=== PATIENT | female | born 1980 | race Caucasian/White ===

== ENCOUNTER 2023-04-22 20:24 | Emergency (ER) | payer SELFPAY | END 2023-04-22 21:12 | disposition left against medical advice (07) | LOC: ER 20:27 | DX: K04.7 Periapical abscess without sinus (principal); Z53.21 Procedure and treatment not carried out due to patient leaving prior to being seen by health care provider ==

== ENCOUNTER 2024-12-10 14:02 | Emergency (ER) | payer SELFPAY ==
[~2024-12-10] VITALS: Ht 152.4 cm; Wt 60.0 kg
--- NOTE | 2024-12-10 14:18 | Physician Documentation ---
History of Present Illness ~ Chief Complaint: Bite-insect Stated Complaint: ALLERGIC REACTION, BEE STING Time Seen by MD: 14:16 HPI MSE: 44-year-old female that presents to the emergency department after being stung by a bee approximately 20-25 minutes ago. Patient reports that she is having chest pain swelling and a rash. Airway is intact no complications with the airway at this time patient reports that she does not have difficulty breathing. Patient reports he has a history of Wfkaa-[id number]-[id number] without any significant complications. 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 Patient denies any other significant past medical history or any other symptoms at this time. Medication Reconciliation Allergies: Coded Allergies: bee venom protein (honey bee) (Verified Allergy, Unknown, 12/10/24) iodine (Verified Allergy, Unknown, SWELLING, 12/10/24) Review of Systems ROS As stated above in the HPI, otherwise all systems are reviewed and negative. Physical Exam Physical Exam VITALS: Reviewed and as above. GENERAL: Alert, no apparent distress. HEENT: Normocephalic, atraumatic, PERRL, EOMI, dry mucosa, mild edema and erythema noted around eyes bilaterally. RESPIRATORY: Lungs clear, normal breath sounds, no respiratory distress. CHEST: No accessory muscle use, no retractions CV: Regular rate, rhythm, no edema, no murmur, No: JVD GI: Soft, non-tender, bowels sounds present, no rebound, guarding, or rigidity BACK: No CVA tenderness, or swelling MUSCULOSKELETAL No deformities, no edema SKIN: Warm and dry, edema and rash noted to area underneath breasts bilaterally splotchy areas to the face and around the eyes bilaterally arms bilaterally and area of edema and obvious source of bee or wasp sting to the left index finger. NEURO: Oriented x4, No motor or sensory deficit PSYCH: Normal mood and affect, no agitation Progress Results/Orders Results/Orders Completed Orders - GEMMA CASSIDY Methylprednisolone Sod Succ (Solumedrol (12/10/24 14:25) Famotidine Tablet (Pepcid Tablet) (12/10/24 14:25) Electrocardiogram (12/10/24 ) Medications Received in ER Medications (Trade) Dose Ordered Sig/Presley Route PRN Reason Start Time Stop Time Status Last Admin Dose Admin (SoluMEDROL 125mg inj) 125 mg ONCE ONCE IM 12/10/24 14:25 12/10/24 14:26 DC 12/10/24 14:40 125 MG (Pepcid tablet) 20 mg ONCE ONCE PO 12/10/24 14:25 12/10/24 14:26 DC 12/10/24 14:31 20 MG Vital Signs 12/10/24 14:14 Temp 99.6 Pulse 50 Resp 16 B/P (MAP) 122/68 Pulse Ox 98 O2 Flow Rate 0 Medical Decision Making Findings This patient presents with symptoms consistent with acute hypersensitivity reaction, likely acute allergic reaction. Presentation not consistent with acute anaphylaxis (lack of pulmonary, dermatologic, cardiovascular or GI symptoms, lack of hypotension or exposure to known allergen), angioedema, serum sickness (no recent drug exposure, lacks fevers, arthralgias). No evidence of airway compromise or shock at this time. Patient improved with H1/H2 blockers, steroids. No need for epinephrine. Prescribed patient EpiPen. Patient will follow up with her primary care provider. Patient will return to the emergency department with any worsening or recurrent symptoms or any additional concerning symptoms that we discussed here today i.e. shortness of breath chest tightness throat tightness lightheadedness dizziness increased rash increased swelling or any other concerning symptoms. Differential Dx:Considerations: Include: Abrasion, Allergic reaction, Anaphylaxis, Cellulitis, Contusion, Fracture, Hematoma, Insect envenomation, Laceration, Neurovascular injury, Punture wound, Retained foreign body, Urticaria, Other Departure Impression: Primary Impression: Insect bites Additional Impressions: Bee sting Allergic response Rash Discharge Instructions: Insect Bite, Adult, [id number] Referrals: NO PRIMARY CARE PROVIDER (PCP) Prescriptions Epinephrine (Epipen 2-Markos) 0.3 Mg/0.3 Ml Auto.injct 1 SYR IM ONCE for 1 Day, #1 PKT 0 Refills Prov: GEMMA CASSIDY 12/10/24 Education Educated: Patient Educated regarding: diagnosis, treatment, need for follow up Signature Scribe Signature: A Attestation: Scribed for Gemma Cassidy by PREMA Thompson . 12/10/24 15:36 GEMMA CASSIDY Dec 10, 2024 14:18
--- NOTE | 2024-12-10 14:26 | ELECTROCARDIOGRAPH REPORT ---
[facility] Test Date: 2024-12-10 Test Time: 14:19:56 Pat Name: BRAULIO AVINA Department: EMERGENCY ROOM Room: Gender: F [employer] Hand: [place] : 1980 Requested By: GEMMA CASSIDY Order Number: [id number] Reading MD: Measurements Intervals [place] Rate: 98 P: 54 MI: 53 QRS: -17 QRSD: 95 T: -26 QT: 372 QTc: 476 Interpretive Statements Sinus rhythm Ventricular bigeminy Short MI interval Borderline left axis deviation Abnormal T, consider ischemia, anterior leads Please click the below link to view image of tracing.
[2024-12-10] MEDS ORDERED: EPIN0.3P3 IM (15:35)
[2024-12-10 15:36] VITALS: BP 103/77; PULSE 95; RESP 16; TEMP 99; O2SAT 99
== END 2024-12-10 15:41 | disposition home or self-care (01) ==
LOC: ER 14:03
DX: T63.441A Toxic effect of venom of bees, accidental (unintentional), initial encounter (principal); R21 Rash and other nonspecific skin eruption; Z88.8 Allergy status to other drugs, medicaments and biological substances; Z91.030 Bee allergy status; Y92.89 Other specified places as the place of occurrence of the external cause
CPT/HCPCS: 93005; 96372; 99283; J2919